=== PATIENT | female | born 1995 | race Caucasian/White ===

== ENCOUNTER → 2017-11-06 14:04 | Outpatient (REF) | payer MEDICAID, SELFPAY | LOC: LBN 14:04 | PROVIDERS: PCP Nurse Practitioner; Visit Provider Midwife | DX: Z36.85 Encounter for antenatal screening for Streptococcus B (principal); Z34.83 Encounter for supervision of other normal pregnancy, third trimester | CPT/HCPCS: 87081 ==

== ENCOUNTER 2017-11-21 09:23 | Outpatient (CLI) | payer MEDICAID, SELFPAY ==
--- NOTE | 2017-11-21 10:55 | DI.US_ITS ---
Many abnormalities cannot be diagnosed. A normal exam does not exclude a congenital anomaly. Radiology No. LMP: Exam Date: 11/21/[address] [facility] wks days on EDC ([facility]) 12/04/17 Confirmed: HISTORY: DECREASED MOVEMENT ---- PREDICTED GESTATIONAL AGE NUMBER 38.1 weeks with a range of 37.1 week to 39.1 weeks. 1 Determined by__[id number]___LMP___HISTORY Info. pertaining to fetus # PLACENTA PRESENTATION Grade I-II Cephalic__X_ Anterior_X__Posterior___ Breech____ Right Left Transverse(head right___ Fundal___Low-lying___Previa___ Transverse(head left___ Varying BIOMETRY AMNIOTIC FLUID BPD: mm weeks Normal HC: mm weeks AC: mm weeks FL: mm weeks AMNIOTIC FLUID INDEX >26 WK CRL: mm weeks Cisterna Magna: mm CI: RUQ:___3.3___LUQ__1.9 Cerebellum: cm EFW: grams Percentile RLQ:___6.5___LLQ___0____ Total:____11.7____cms Composite AGE= wks EDC by US BIOPHYSICAL PROFILE ANATOMY IDENTIFIED SCORE 0/2 Heart: 4-Chamber___Rate:BPM__137___ LVOT: RVOT: Amniotic Fluid(>2cms)___2/2_ Stomach: Kidneys: Respirations (>30 secs)__2/2__ Bladder: Post. Fossa: Body Flex/Extension____2/2__ 3 vessel cord: Ventricles: cord insertion: Lips:____ Extremity Flex/Extension__2/2 spinal morphology: Nose: Total Score= 8/8 Palate: NS=not seen
== END 2017-11-21 09:43 ==
PROVIDERS: PCP Nurse Practitioner; Visit Provider Advanced Practice Midwife
DX: O36.8130 Decreased fetal movements, third trimester, not applicable or unspecified (principal); Z3A.39 39 weeks gestation of pregnancy
CPT/HCPCS: 76815; 59025; 76819

== ENCOUNTER 2017-12-02 05:25 | Inpatient (IN) | payer MEDICAID, SELFPAY ==
[2017-12-02] MEDS: Lactated Ringers 1,000 ML 125 ML IV (06:00)
[2017-12-02 06:05] LABS: HCT 38.9 % (36.0-46.0); HGB 13.6 g/dL (12.0-15.5); Mean Corpuscular Hemoglobin 28.6 pg (27.0-33.0); Mean Corpuscular Volume 81.9 fL (80-95); Mean Platelet Volume 11.2 fL (8.0-11.0); Platelet Count 239 x1000/uL (130-400); RBC 4.75 m/cumm (4.00-5.20); White Blood Cell Count 10.54 k/cumm (4.4-10.8)
[2017-12-02] MEDS: Normal Saline Flush 10 ML SYR IVP (06:39)
[2017-12-02] MEDS: Hamamelis Leaf/Glycerin 100 EACH BOX PR (11:57)
[2017-12-03] MEDS: Ibuprofen 600 MG TAB PO (04:32)
[2017-12-03] MEDS: Hamamelis Leaf/Glycerin 100 EACH BOX PR (06:15)
[2017-12-03 07:23] LABS: HCT 36.8 % (36.0-46.0); HGB 12.5 g/dL (12.0-15.5); Mean Corpuscular Hemoglobin 28.6 pg (27.0-33.0); Mean Corpuscular Volume 84.2 fL (80-95); Mean Platelet Volume 11.5 fL (8.0-11.0); Platelet Count 211 x1000/uL (130-400); RBC 4.37 m/cumm (4.00-5.20); RBC Distribution Width 13.2 % (11.7-14.6); White Blood Cell Count 10.32 k/cumm (4.4-10.8)
== END 2017-12-03 13:30 | disposition home or self-care (01) | DRG 775 ==
PROVIDERS: Admitting Provider Midwife; PCP Nurse Practitioner; Visit Provider Midwife
DX: O69.1XX0 Labor and delivery complicated by cord around neck, with compression, not applicable or unspecified (principal); Z37.0 Single live birth; Z3A.38 38 weeks gestation of pregnancy; O92.79 Other disorders of lactation
CPT/HCPCS: 36415; 85027; 86850; 86900; 86901; J3490

== ENCOUNTER 2018-01-23 01:26 | Outpatient (CLI) | payer MEDICAID, SELFPAY ==
[2018-01-23 10:05] LABS: HCT 40.5 % (36.0-46.0); HGB 13.3 g/dL (12.0-15.5); Mean Corp. HGB Concentration 32.8 g/dL (32.0-36.0); Mean Corpuscular Hemoglobin 28.2 pg (27.0-33.0); Mean Corpuscular Volume 85.8 fL (80-95); Mean Platelet Volume 10.8 fL (8.0-11.0); Platelet Count 273 x1000/uL (130-400); RBC 4.72 m/cumm (4.00-5.20); RBC Distribution Width 12.9 % (11.7-14.6); White Blood Cell Count 6.78 k/cumm (4.4-10.8)
[2018-01-23 10:20] LABS: Anion Gap 6.1 mmol/L (3-11); BUN 14 mg/dL (7-18); CO2 30.9 mmol/L (21.0-32.0); Calcium 9.3 mg/dL (8.5-10.1); Chloride 105 mmol/L (98-107); Glucose 69 mg/dL (70-100); Potassium 4.4 mmol/L (3.5-5.1); Sodium 142 mmol/L (136-145)
[2018-01-23 10:29] LABS: HCG Quant, Pregnancy < 1 mIU/mL (1-3)
== END 2018-01-23 01:46 ==
PROVIDERS: PCP Nurse Practitioner; Visit Provider Obstetrics & Gynecology Gynecology
DX: Z01.812 Encounter for preprocedural laboratory examination (principal); Z30.2 Encounter for sterilization
CPT/HCPCS: 36415; 80048; 85027; 86850; 86900; 86901; 84702

== ENCOUNTER 2018-01-24 06:38 | Day surgery (SDC) | payer MEDICAID, SELFPAY ==
[2018-01-24 06:50] VITALS: BP 112/80; PULSE 84; RESP 18; TEMP 35.9; O2SAT 99
[2018-01-24] MEDS: Lactated Ringers 1,000 ML 125 ML IV ×2 (07:08→08:57)
[2018-01-24] MEDS: Bupivacaine 0.25% Pres-Free 30 ML VIAL (08:02)
--- NOTE | 2018-01-24 08:27 | FALL_PTH ---
PATIENT: Isabel Hernandez LOC: [facility] U#:[id number] AGE/SX: 22/F ROOM: RE01/24/[address]: Penny Caban : 1995 BED: DIS: 01/24/2018 SPEC #: [id number] RECD: 01/24/18 13:07 STATUS: RONDA RE #: [id number] SHAHANA: 01/24/18 08:[address]: Penny Caban DEPT: Surgical Specimen RECD BY: Heather Hutchinson ENTERED: 01/24/18 13:09 SP TYPE: Fall OTHR DR: Vonnie Zhong Tissues: 1 - FALLOPIAN TUBE (STERILIZATION) 2 - FALLOPIAN TUBE (STERILIZATION) Procedures: GROSS AND MICRO LEVEL 2 Comments: [id number]
[2018-01-24 09:08] VITALS: BP 119/69; PULSE 87; RESP 21; TEMP 37.1; O2SAT 96
[2018-01-24 09:13] VITALS: BP 133/84; PULSE 88; RESP 29; TEMP 37.1; O2SAT 97
[2018-01-24 09:18] VITALS: BP 128/90; PULSE 82; RESP 21; TEMP 37.1; O2SAT 98
[2018-01-24 09:33] VITALS: BP 117/75; PULSE 73; RESP 18; TEMP 36.5; O2SAT 97
[2018-01-24 10:15] VITALS: BP 108/72; PULSE 70; RESP 16; TEMP 36.5; O2SAT 94
--- NOTE | 2018-01-24 13:34 | ROE_ITS ---
REPORT OF OPERATIVE PROCEDURE DATE OF PROCEDURE January 24, 2018 PREOPERATIVE DIAGNOSES Multiparity desiring permanent sterilization. POSTOPERATIVE DIAGNOSES Multiparity desiring permanent sterilization. PROCEDURE Laparoscopic bilateral salpingectomy. SURGEON Penny Caban M.D. OFFSET PRESS OPERATOR HELPER RENE Ambrose ANESTHESIA General endotracheal via Maximo Bhandari C.R.N.A. IV FLUIDS IV crystalloid 1000 cc. URINE OUTPUT 25 cc of clear dario urine in the Ham catheter at the completion of the procedure. ESTIMATED BLOOD LOSS None. DRAINS None. COMPLICATIONS None. SPECIMENS Right and left fallopian tube to pathology. DISPOSITION Awakened, extubated and transported to recovery area in stable condition. INDICATIONS FOR SURGERY A 21-year-old G2, P2 female who has been counseled both during her and course re garding her desire for permanent sterilization. She had been told about alternatives to permanent bk rilization including long-acting reversal contraception, OCP's. She declines all alternative methods. She is sure that her family is complete and that she does not want any more children. FINDINGS AT THE TIME OF SURGERY The uterus is small, normal in appearance, both fallopian tube normal in appearance, right and left o vary normal, cul-de-sac normal, upper abdomen normal. I did not look for the appendix. DESCRIPTION OF PROCEDURE The patient was taken to the Operating Room. She was placed in the dorsal supine position, and genera l endotracheal anesthesia was administered without difficulty. No antibiotics were required. After a timeout was completed, SCDs were placed on the patient's lower extremities and left in place for the remainder of the case. She was prepped and draped in the usual and sterile fashion, after a Ham ca theter was inserted to gravity drainage. The anterior portion of the umbilicus was infiltrated with 2 cc of 0.25% Marcaine without epinephrine. The scalpel was used to make an 11-mm vertical skin inc ision. The subcutaneous tissue was dissected using blunt technique and the rectus fascia was grasped, tented up and entered sharply with curved Sandhu scissors. The rectus fascia was then held with interr upted sutures of #0-Vicryl and the peritoneum was then grasped, tented up and entered sharply. The Bass sson 11-mm trocar was then inserted through the umbilical incision, Pneumoperitoneum was achieved usi ng carbon dioxide gas as distention medium. Intra-abdominal placement confirmed by use of the laparos cope. The patient was placed in Trendelenburg under direct visualization, both right and left lower 5 -mm ports were placed 2 cm medial to the superior anterior iliac crest. After infiltration of the sit e with 0.25% Marcaine before skin incision. The bowels were swept away. The right fallopian tube was grasped, followed out to fimbriated end. Ureters were inspected and noted to be remote from the opera tive field. A bipolar LigaSure device was used to clamp, cauterize and transect the mesosalpinx with its attachment to the right ovary to the level of the right uterine cornua. Once the proximal cervix at the cornua had been clamped, cauterized and transected, the right fallopian tube was grasped and d elivered through the 5-mm port site. A similar technique was carried out on the left fallopian tube a nd the left fallopian tube removed in its entirety to the level of the uterine cornua. The left fallo pian tube was then grasped and delivered through the left port site under direct visualization. Caref ully, the pedicle beds were carefully inspected noted to be hemostatic under direct visualization, asher th 5-mm ports were removed and pneumoperitoneum was reduced. The umbilical port was removed and the r ectus fascia port site was closed with another interrupted suture of #0-Vicryl and in an opposite fas hion, the two previously placed fascial stitches were reapproximated to assure excellent closure. The subcutaneous tissue was closed with interrupted suture of #4-0 Vicryl and the skin was closed in a s ubcuticular fashion with #4-0 Vicryl. Skin glue was applied to the incisions. All sponge, lap and nee dle counts correct x2.
== END 2018-01-24 10:45 | disposition home or self-care (01) ==
PROVIDERS: PCP Nurse Practitioner; Visit Provider Obstetrics & Gynecology Gynecology
PROC: (CPT 58661; principal; 2018-01-24 07:30)
DX: Z30.2 Encounter for sterilization (principal)
CPT/HCPCS: 58661; 88302; J0131; J1100; J1885; J2250; J2405; J3010

== ENCOUNTER 2020-12-23 12:22 | Outpatient (REF) | payer MEDICAID, SELFPAY ==
--- NOTE | 2020-12-23 09:45 | PAPFT_PTH ---
PATIENT: Isabel Hernandez LOC: [facility] U#:[id number] AGE/SX: 25/F ROOM: RE12/23/[address]: Dylan Sanches : 1995 BED: DIS: 12/23/2020 SPEC #: [id number] RECD: 12/23/20 16:47 STATUS: RONDA REDeidre #: [id number] SHAHANA: 12/23/20 09:[address]: Dylan Sanches DEPT: [facility] Cytology RECD BY: Heather Hutchinson ENTERED: 12/23/20 16:48 SP TYPE: PAPFT OTHR DR: Vonnie Zhong Tissues: 1 - CX/ENDOCX FOR PAP SMEARS Procedures: PAP THIN PREP/UVM Screening Comments: [id number]
== END 2020-12-23 12:23 | disposition home or self-care (01) ==
LOC: NCHCN 12:22
PROVIDERS: PCP Nurse Practitioner; Visit Provider Family Medicine
DX: Z12.4 Encounter for screening for malignant neoplasm of cervix (principal); Z01.419 Encounter for gynecological examination (general) (routine) without abnormal findings; Z00.00 Encounter for general adult medical examination without abnormal findings
CPT/HCPCS: 88142

== ENCOUNTER 2022-01-31 09:46 | Emergency (ER) | payer MEDICAID, SELFPAY ==
[2022-01-31 09:59] VITALS: BP 136/88; PULSE 86; RESP 18; TEMP 37.3; O2SAT 99
--- NOTE | 2022-01-31 10:29 | W.ED.GENAD ---
Discharge Plan Disposition Patient Disposition: Home Condition: Stable Discharge Details Clinical Impression: Viral upper respiratory illness Primary Care Provider: RobynLocal ED Provider: Leatha Carter Home Meds and New Rx's Prescriptions: New benzonatate 100 mg capsule 100 mg PO TID PRN (Reason: cough) Qty: 10 0RF No Action ibuprofen 200 mg Tablet 200 - 400 mg PO QID PRN Discharge Instructions Instructions: Upper Respiratory Infection (ED) Additional Instructions: Your exam is reassuring here today. I do not see evidence of bacterial infection. However, I am worrie dyou have viral illness. Testing for COVID, RSV and flu are pending. I will call you this afternoon with results. A cough suppressant has been called to your pharmacy. Please encourage hydration. You my use tylenol and/or ibuprofen as needed for discomfort. Mucinex over the counter for mucus production. If you develop shortness of breath, difficulty breathing, inabulity to stay hydrated or other new/worsening symptoms please seek care urgently once again. Otherwise, please follow up with your primary care in 2 weeks for reevaluation. Stand Alone Forms: Work Release Discharge Data Discharge Date/Time-TO BE ENTERED AT DEPARTURE: 01/31/22 11:45 Medical Decision Making Patient is a pleasant 26 year old female presenting today with c/c of sore throat and cough. States that it initially started about one week ago, had initially improved but has been more consistent for the past 4-5 days. No difficulty swallowing, no SOB. Endorses cough, denies wheezing. No rash, no GI upset. On exam, patient appears nontoxic. Her exam is reassuring. Lungs are clear, normal cardiac exam. VS WNL. Mild erythema in posterior oropharynx, no palpable lymphadenopathy. I do not see evidence of bacterial infection at this time. considered COVID or flu, will test for these. Encouraged hydration and supportive care. Advised she quarentine. Return precautions discussed. Advised f/u with PCP. All of her quesitons and concerns were addressed, she is in agreement with this plan. Sign Out No HPI General Date/Time Provider Initiated Documentation: 01/31/22 10:07. Limitations to Documentation: no limitations. Information obtained by: patient and RN notes reviewed. History of Present Illness 26 year old F presents to the emergency department with the chief complaint of sore throat, cough, runny nose, described as moderate, Quality is described as burning (sore throat), Patient started experiencing this day(s) and it has been constant. No relieving factors improve symptom(s), No exacerbating factors reported . Patient notes cough and malaise; denies chest pain, fever/chills, headaches, nausea/vomiting, rash and shortness of breath. Patient did receive the following treatments prior to arrival, none Related Data Home Medications Medication Instructions Recorded Confirmed ibuprofen 200 mg tablet 200 - 400 mg PO QID PRN 01/22/18 01/31/22 benzonatate 100 mg capsule 100 mg PO TID PRN cough #10 caps 01/31/22 Previous Rx's Medication Instructions Recorded benzonatate 100 mg capsule 100 mg PO TID PRN cough #10 caps 01/31/22 Allergies Allergy/AdvReac Type Severity Reaction Status Date / Time No Known Allergies Allergy Unverified 01/31/22 10:02 General Stated Complaint: Sorethroat AVIS: 4 Review of Systems Constitutional Constitutional: Reports as per HPI and Denies headache(s) Eyes Eyes: Reports as per HPI, Denies eye discharge and Denies irritation ENT Ears, Nose, Mouth, and Throat: Reports as per HPI and Denies headache(s) Cardiovascular Cardiovascular: Reports as per HPI, Denies chest pain and Denies dyspnea Respiratory Respiratory: Reports as per HPI and Denies dyspnea Gastrointestinal Gastrointestinal: Reports as per HPI, Denies abdominal pain, Denies change in bowel habits, Denies nausea and Denies vomiting Integumentary/Breasts Skin/Breast: Reports as per HPI and Denies rash Neurologic Neurologic: Reports as per HPI and Denies headache(s) PFSH All Active Problems (Updated 01/31/22 @ 11:33 by RENE Herron) Viral upper respiratory illness (Acute) Request for sterilization (Acute) Elevated BP without diagnosis of hypertension (Acute 11/04/16) Medical History (Updated 01/31/22 @ 11:33 by RENE Herron) Request for sterilization Patient counseled during her and regarding alternatives to permanent sterilization she declines ARC. Surgical History (Updated 02/25/18 @ 13:23 by Penny Caban MD) Hx of bilateral salpingectomy 01/25/18 performed for laparoscopic sterilization. Family History Brother Asthma Paternal Grandmother CAD (coronary artery disease) Social History (Updated 01/15/18 @ 18:31 by Penny Caban MD) Smoking/Tobacco Use Status: Never Smoking risk assessment performed?: Yes Alcohol Intake: current Alcohol Intake frequency: 0-2 drinks per day Drug use: Never Substance use type: does not use Foster care: No Household members: significant other and children Number of Children: 2 current occupation: [employer] Pets and animals: Yes (2 cats, 1 dog) What type of physical activity do you participate in: none Seatbelt use: always Helmet use: Yes Drive intox or ride w/intox motorcycle delivery driver: No Water heater temp set <120 deg: Yes Working smoke detector in home: Yes Fire extinguisher in home: Yes Carbon monox detector in home: Yes Firearms in home: Yes Firearms unloaded and locked: No Do you feel safe at home: Yes Do you feel safe in your relationship?: Yes Victim of physical abuse: No Victim of emotional abuse: No Female Reproductive History Menstrual control method: condoms (t/l pending as of 01/02/18 al) History History 2 Para 2 Hx # Term Pregnancies 2 Multiple births 0 Hx # Pregnancies 0 Ectopic pregnancies 0 AB induced 0 Hx Number of Living Children 2 AB spontaneous 0 Past Pregnancies Del. Date GA/Weeks # Preg Succ Route Wgt Sex Labor Lgth Anesthesia Location [facility] 12/02/17 39 No vaginal 3260.195 g Female 3 hrs. 49 min. K. Crow Exam Const General: cooperative, healthy appearing, comfortable, no acute distress, well developed and well groomed Nutritional Appearance: well nourished and overweight Orientation: alert and awake [facility] Head: normal to inspection, normocephalic and atraumatic Ears: hearing grossly normal bilaterally, external ears normal and TM's normal bilaterally General nose exam: external nose normal and nares normal Face and sinus: normal facial exam, sinuses nontender and face symmetric Mouth: oral mucosae normal, lip normal, tongue normal, oropharynx normal and moist mucous membranes Teeth and gingiva: dentition normal Throat: posterior oropharynx abnormal (mild erythema), tonsils normal and uvula midline Eyes General: appearance normal, both eyes and all related structures Neck Neck: normal visual inspection, full ROM, no lymphadenopathy and no meningeal signs Resp Effort & Inspection: normal respiratory effort, able to speak in complete sentences and no respiratory distress Auscultation: clear to auscultation bilaterally, no rales, no rhonchi and no wheezes Cardio Rate: regular rate Rhythm: regular rhythm Heart Sounds: S1 normal and S2 normal Skin General skin exam: no rashes or lesions noted Neuro General: patient alert and patient awake Cognition: normal cognition Speech: speech normal Gait: normal gait Psych Appearance: grossly normal and well kempt Mental Status: mental status grossly normal Speech and Movement: speech and movement normal Course Vital Signs Vital signs: Vital Signs Temperature 37.3 C 01/31/22 09:59 Pulse 86 01/31/22 09:59 Respiratory Rate 18 01/31/22 09:59 Blood Pressure 136/88 01/31/22 09:59 Pulse Oximetry 99 01/31/22 09:59 Temperature 37.3 C 01/31/22 09:59 Temperature Source Temporal Artery Scan 01/31/22 09:59 Pulse 86 01/31/22 09:59 Respiratory Rate 18 01/31/22 09:59 Respiratory Effort Non-Labored 01/31/22 10:03 Blood Pressure 136/88 01/31/22 09:59 Blood Pressure Position Sitting 01/31/22 09:59 Pulse Oximetry 99 01/31/22 09:59 Oxygen Delivery Method Room Air 01/31/22 09:59 Oxygen Flow Rate 0 01/31/22 09:59 Lab/Test Results Lab/Test Results: POC Strep Test-KIERAN(Rapid) Start: 01/31/22 10:19 Freq: Status: Active Protocol: Document 01/31/22 10:20 PS (Rec: 01/31/22 10:20 PS [id number]) Strep test-KIERAN(Rapid)-POC POC-Strep test-KIERAN (Rapid) Negative POC-Strep test-KIERAN (Rapid) Negative PAWSS Have you Been Recently Intoxicated or Drunk Within the Last 30 days?: No Have you Ever Experienced Previous Episodes of Alcohol Withdrawal?: No Have you ever Experienced Withdrawal Seizures?: No Have you ever Experienced Delirium Tremens(DT)s?: No Have you ever undergone Alcohol Rehabilitation Treatment (i.e, inpt ot outpatient treatment programs)?: No Have you ever Experienced Blackouts?: No Have you ever Combined Alcohol with other Downers within the last 90 days?: No Have you ever Combined Alcohol with any other Substance of Abuse during the last 90 days?: No Positive Blood Alcohol level on Presentation? [PCS.BAL]: No Evidence of Increased Autonomic Activity (i.e. HR>120, tremor, sweating, agitation, nausea)?: No Result: 0
--- NOTE | 2022-01-31 11:43 | NUR.NOTE ---
Nursing Note: Referral given to Care Management for needs PCP, establish care; routine follow up.
[2022-01-31 12:17] LABS: COVID-19 PCR Negative (Negative); Influenza A PCR Negative (Negative); Influenza B PCR Negative (Negative); RSV PCR Negative (Negative)
--- NOTE | 2022-02-02 16:42 | PDOC.ERCMACT ---
- If Service Date Differs Date of service: 02/02/22 Time of Service: 16:42 Care Management Activity Note Isabel is seen in the ED for an upper respiratory illness. At the request of ED provider, HAYDEN coordinates a referral to GROVER Iverson, of [facility], t-doc, to assist Isabel in obtaining a follow up appointment and in establishing care with a PCP. She has Medicaid for insurance.
== END 2022-01-31 11:45 | disposition home or self-care (01) ==
PROVIDERS: Emergency Provider Physician Assistant
DX: J06.9 Acute upper respiratory infection, unspecified (principal)
CPT/HCPCS: 87637; 87880; 99283; 87081

== ENCOUNTER 2022-05-26 16:00 | Outpatient (REF) | payer MEDICAID, SELFPAY ==
[2022-05-26 14:19] LABS: HCT 40.5 % (36.0-46.0); HGB 13.4 g/dL (11.2-15.7); MCH 27.5 pg (27.0-33.0); MCHC 33.1 % (32.0-36.0); MCV 83 fL (80-95); MPV 11.4 fL (8.0-11.0); Platelet Count 300 10^3/uL (130-400); RBC 4.87 10^6/uL (3.93-5.22); RDW 12.1 % (11.7-14.6); WBC 6.68 10^3/uL (4.4-10.8)
== END 2022-05-26 16:01 | disposition home or self-care (01) ==
LOC: NCHCN 16:00
PROVIDERS: Visit Provider Nurse Practitioner Family
DX: N92.0 Excessive and frequent menstruation with regular cycle (principal)
CPT/HCPCS: 85027; 83540; 83550

== ENCOUNTER 2022-06-14 03:04 | Outpatient (CLI) | payer MEDICAID, SELFPAY ==
[2022-06-14 10:23] LABS: Iron 91 ug/dL (50-170); Total Iron Binding Capacity 337 ug/dL (250-450); Transferrin Sat 27 % (15-50)
== END 2022-06-14 03:05 | disposition home or self-care (01) ==
LOC: LBO 03:04
PROVIDERS: Visit Provider Nurse Practitioner Family
DX: N92.0 Excessive and frequent menstruation with regular cycle (principal)
CPT/HCPCS: 36415; 83540; 83550

== ENCOUNTER → 2023-01-31 02:06 | Outpatient (CLI) | payer MEDICAID, SELFPAY ==
--- NOTE | 2023-01-31 | DI.US_ITS ---
Exam(s) US PELVIS TRANSVAGINAL EXAM: US PELVIS TRANSVAGINAL CLINICAL HISTORY: HEAVY MENSTRUATION, N92.0. TECHNIQUE: Transabdominal and transvaginal pelvic ultrasound was performed using standard protocol. COMPARISON: US US OB biophysical profile from 11/21/2017 FINDINGS: UTERUS: Position: Anteverted. Size: 8.8 long by 4.8 AP by 5.3 transverse cm Endometrium: 1.1 cm. Normal for patient's menstrual status. Myometrium: Unremarkable. Cervix: Unremarkable. OVARIES: Right: 3.3 x 1.7 x 1.6 cm Cyst or mass: No suspicious cystic or solid masses. Left: 2.9 x 2.5 x 1.9 cm Cyst or mass: No suspicious cystic or solid masses. DOPPLER: Color: Symmetric and uniform flow to both ovaries. CUL-DE-SAC: Free fluid: None. Other: None. IMPRESSION: 1. Normal-appearing uterus with endometrial stripe within normal limits. 2. Unremarkable bilateral ovaries. DATA REPOSITORY:
== END ==
PROVIDERS: Visit Provider Nurse Practitioner Family
DX: N92.0 Excessive and frequent menstruation with regular cycle (principal)
CPT/HCPCS: 76830; 76856

== ENCOUNTER 2023-09-07 15:17 | Outpatient (REF) | payer MEDICAID, SELFPAY | END 2023-09-07 15:18 | disposition home or self-care (01) | LOC: NCHCN 15:17 | PROVIDERS: Visit Provider Nurse Practitioner Family | DX: L08.82 Omphalitis not of newborn (principal) | CPT/HCPCS: 87070; 87205 ==

== ENCOUNTER 2023-12-28 13:26 | Outpatient (REF) | payer MEDICAID, SELFPAY ==
--- NOTE | 2023-12-28 09:40 | PAPFT_PTH ---
PATIENT: Isabel Hernandez [facility] U[id number] AGE/SX: 28/F ROOM: RE12/28/[address]: Elayne Kinsey : 1995 BED: DIS: 12/28/2023 SPEC #: [id number] RECD: 12/29/23 13:21 STATUS: RONDA REQ #: [id number] SHAHANA: 12/28/23 09:[address]: Elayne Kinsey DEPT: REPLACED BY [facility] Cytology RECD BY: Heather Hutchinson ENTERED: 12/29/23 13:21 SP TYPE: PAPFT OTHR DR: Unknown,Unknown Tissues: 1 - CX/ENDOCX FOR PAP SMEARS Procedures: PAP THIN PREP/UVM Screening Comments: [id number] (CHLAMYDIA/GC)
[2024-01-01 12:31] LABS: Chlamydia Result Negative (Negative); GC Result Negative (Negative)
== END 2023-12-28 13:27 | disposition home or self-care (01) ==
LOC: NCHCN 13:26
PROVIDERS: Visit Provider Nurse Practitioner Family
DX: Z12.4 Encounter for screening for malignant neoplasm of cervix (principal)
CPT/HCPCS: 87491; 87591; 88142

== ENCOUNTER 2024-03-28 15:32 | Outpatient (CLI) | payer MEDICAID, SELFPAY ==
--- NOTE | 2024-03-28 08:45 | DI.RAD_ITS ---
Exam(s) XR WRIST LT COMPLETE EXAM: XR WRIST LT COMPLETE CLINICAL HISTORY: mass L wrist. TECHNIQUE: 2D digital imaging was performed. Three views. COMPARISON: No exams were available for comparison FINDINGS: BONES: No acute fracture is present. No bony destructive lesion is seen. JOINTS: The carpal bones are normally aligned. SOFT TISSUE: Normal. No visible mass. IMPRESSION: Unremarkable radiographs of the left wrist. DATA REPOSITORY: RADIATION DOSE DELIVERED:
== END 2024-03-28 15:33 | disposition home or self-care (01) ==
LOC: DIORS 15:32
PROVIDERS: PCP Nurse Practitioner Family; Visit Provider Physician Assistant
DX: M25.532 Pain in left wrist (principal)
CPT/HCPCS: 73110

== ENCOUNTER 2024-06-20 01:06 | Outpatient (CLI) | payer MEDICAID, SELFPAY ==
--- NOTE | 2024-06-20 08:45 | DI.MRI_ITS ---
Exam(s) MR UPPER JOINT LT WO EXAM: MR UPPER JOINT LT WO CLINICAL HISTORY: pain, MASS LT WRIST, R22.32. TECHNIQUE: Multiplanar multisequence MRI was performed. COMPARISON: Comparison x-ray is 03/28/2024. FINDINGS: BONES: There is no fracture or contusion pattern. There is a benign-appearing focus of marrow edema i n the capitate. JOINTS: The radiocarpal joint is unremarkable. The carpal joints are unremarkable. TENDONS: Flexors: Unremarkable. Extensors: Unremarkable. MUSCLES: Unremarkable. MEDIAN NERVE: Unremarkable on this noncontrast examination. ULNAR NERVE: Unremarkable on this noncontrast examination. SOFT TISSUES: There is a 1.1 x 0.4 cm fluid collection at the anterior aspect of the radiocarpal join t which may represent a small ganglion cyst. There is a 0.6 x 0.4 cm ovoid T2 hyperintense, T1 hypoi ntense lesion at the medial aspect of the wrist in the subcutaneous tissues anterior to the ulnar sty loid process. It is not associated with a tendon or muscle. There are adjacent vascular structures. LIGAMENTS: Unremarkable. TRIANGULAR FIBROCARTILAGE: Unremarkable. OTHER: IMPRESSION: 1. No evidence of an occult fracture or avascular necrosis. 2. 1.1 x 0.4 cm fluid collection at the anterior aspect of the radiocarpal joint which may represent small ganglion cyst. 3. The tendons appear unremarkable. 4. 0.6 x 0.4 cm ovoid T2 hyperintense, T1 hypointense lesion in the subcutaneous tissues in the volar and ulnar soft tissues. A postcontrast examination may be considered for further evaluation. This m ay be vascular in origin but the possibility of a sebaceous cyst, ganglion or soft tissue mass cannot be excluded. DATA REPOSITORY:
== END 2024-06-20 01:26 ==
LOC: DI 01:06
PROVIDERS: PCP Nurse Practitioner Family; Visit Provider Student in an Organized Health Care Education/Training Program
DX: R22.32 Localized swelling, mass and lump, left upper limb (principal)
CPT/HCPCS: 73221

== ENCOUNTER 2024-07-11 01:58 | Outpatient (CLI) | payer MEDICAID, SELFPAY ==
--- NOTE | 2024-07-11 07:30 | DI.US_ITS ---
Exam(s) US SOFT TISSUE EXTREMITY EXAM: US SOFT TISSUE EXTREMITY CLINICAL HISTORY: assess for vascularity of the lesion, mass lt wrist,r22.32. TECHNIQUE: Ultrasound was performed using standard protocol. COMPARISON: No exams were available for comparison FINDINGS: Sonographic assessment utilizing grayscale and color Doppler imaging was performed and targeted to th e area of clinical concern. There is a 0.6 x 0.3 x 0.7 cm hypoechoic nodule in the anterior medial soft tissues of the left wrist . This appears to correspond to the MRI finding. There is mild vascularity seen internally. The fi nding is nonspecific. IMPRESSION: DATA REPOSITORY:
== END 2024-07-11 02:18 ==
LOC: DI 01:58
PROVIDERS: PCP Nurse Practitioner Family; Visit Provider Student in an Organized Health Care Education/Training Program
DX: R22.32 Localized swelling, mass and lump, left upper limb (principal)
CPT/HCPCS: 76881

== ENCOUNTER 2024-10-21 15:20 | Outpatient (REF) | payer MEDICAID, SELFPAY ==
[2024-10-21 20:07] LABS: ALT 18 U/L (14-59); AST 14 U/L (15-37); Albumin 3.6 g/dL (3.4-5.0); Alkaline Phosphatase 62 U/L (46-116); Anion Gap 9.1 mmol/L (3-11); BUN 12 mg/dL (7-18); Bilirubin, Total 0.3 mg/dL (0.2-1.0); CO2 23.9 mmol/L (21.0-32.0); Calcium 8.8 mg/dL (8.5-10.1); Calculated LDL 204 mg/dL (<100); Chloride 107 mmol/L (98-107); Cholesterol 294 mg/dL (<200); Estimated GFR 123.76 (mL/min/1.73m2); Glucose 90 mg/dL (74-106); HDL Cholesterol 52 mg/dL (>or=50); Potassium 4.6 mmol/L (3.5-5.1); Sodium 140 mmol/L (136-145); Total Protein 6.8 g/dL (6.4-8.2); Triglyceride 194 mg/dL (<150)
== END 2024-10-21 15:21 | disposition home or self-care (01) ==
LOC: NCHCN 15:20
PROVIDERS: PCP Nurse Practitioner Family; Visit Provider Nurse Practitioner Family
DX: Z83.49 Family history of other endocrine, nutritional and metabolic diseases (principal); Z82.49 Family history of ischemic heart disease and other diseases of the circulatory system; T14.8XXA Other injury of unspecified body region, initial encounter
CPT/HCPCS: 80053; 80061; 87077; 87070; 87205